=== PATIENT | female | born 1985 | race Caucasian/White ===

== ENCOUNTER → 2016-12-11 | Outpatient (CLI) | payer BC ==
--- NOTE | ~2016-12-11 | CR229 ---
[facility] A Service of [facility] RADIOLOGY TEXT RESULTS PATIENT: ANN BARRON LOCATION: [facility] : 89 UNIT #: [id number] AGE: [address]: RONN GABRIEL SEX: F ORDER DR: [id number] [facility] [address] [place], [place] [address] [id number] O MR#: [id number] Acc #: [id number] NAME: ANN BARRON : 1985 SEX: F STUDY DATE/TIME: 12/11/2016 13:18 UNIT: [facility] ROOM: STUDY DESCRIPTION: CR Shoulder Min 2 View Lt Attending Physician: Malu Clemens Ordering Physician: Malu Clemens MEDICAL IMAGING REPORT This report is preliminary unless electronic signature is present EXAM Left shoulder, 3 views, 12/11/2016. HISTORY Left shoulder pain and decreased range of motion for 1 month with no known injury. FINDINGS AP view with internal and external rotation of the shoulder girdle shows satisfactory relationship of the humeral head and glenoid fossa. The joint space is normal. There is no identifiable fracture or dislocation or bony destructive process about the shoulder girdle anatomy. The acromioclavicular joint is normal. There is no radiopaque foreign body in the region. IMPRESSION Normal shoulder. Dictated by... Tavo Rowland M.D. THIS IS AN ELECTRONICALLY VERIFIED REPORT Tavo Rowland M.D. at 12/12/2016 10:32 AM MATTHEW/josue TD: 12/11/2016 18:54 JOB #: [id number] MEDICAL IMAGING REPORT Page 1 of 1 COPY
== END | disposition home or self-care (01) ==
LOC: CRAD 12:32
DX: M25.512 Pain in left shoulder (principal)
CPT/HCPCS: 73030